=== PATIENT | male | born 1990 | race Caucasian/White ===

== ENCOUNTER 2016-05-29 18:57 | Emergency (ER) | payer BC ==
[~2016-05-29] VITALS: Ht 175.3 cm; Wt 87.9 kg
[2016-05-29] MEDS ORDERED: NAPROXEN500 MG PO (20:23)
[2016-05-29 20:42] VITALS: BP 132/85
== END 2016-05-29 20:43 | disposition home or self-care (01) ==
LOC: EME 18:57
DX: S43.421A Sprain of right rotator cuff capsule, initial encounter (principal); S43.51XA Sprain of right acromioclavicular joint, initial encounter; W00.9XXA Unspecified fall due to ice and snow, initial encounter; Y93.23 Activity, snow (alpine) (downhill) skiing, snowboarding, sledding, tobogganing and snow tubing; Y92.89 Other specified places as the place of occurrence of the external cause
CPT/HCPCS: 73030; 99281; 99284